=== PATIENT | male | born 1995 | race Asian ===

== ENCOUNTER 2021-12-10 13:00 | Outpatient (CLI) | payer OTHER ==
[2021-12-10 16:33] VITALS: BP 126/82
--- NOTE | 2021-12-10 16:33 | SLEEP CARE CONSULTATION ---
Information from patient questionnaire entered by Max Choe. I have reviewed and concur with the information entered by Max Choe. This document represents the service I personally performed and the decisions made by me, Idania Cardoza MD, [facility]. History of Present Illness Service Date and Time: 12/10/2021 1300 Reason for Visit: New patient (INITIAL ONSET: 10/31/18, NO PRIORS) Chief Complaint: reports: Unrefreshed sleep, Snoring, Observed pauses in breathing, Fatigue, Frequent awakenings at night Date of Onset: 2 YEARS AGO Usual bedtime: 11PM Time it takes to fall asleep: 30 MINUTES TO 1 HOUR Snores at night: Yes Observed to quit breathing while asleep: Yes Sleeps alone due to snoring: Yes Number of times waking at night: 1-2 Reasons for waking at night: reports: Choking, Snoring, Gasping for air Toss, Turn, or Twitch while sleeping: Yes Recalls having dreams: Yes Usually gets out of bed at: 7AM Feels refreshed in the morning: No Morning headache: No Sleepy or fatigued during the day: Yes Ever fallen asleep while driving: No Takes day naps: No Dreams during day naps: No Prior sleep studies: No Additional HPI information: I had the pleasure of seeing Mr. Cortes today regarding the possibility of him having a sleep disorder. As you know, he is a 26-year-old gentleman who complains of fatigue, frequent awakenings, unrefreshed sleep, loud snore, and observed apneas for the past 2 years. The patient tells me that he normally goes to bed around 11 pm, and it takes him approximately 30 - 60 minutes to fall asleep. He has been told that he snores loudly and irregularly at night. He has also been observed to stop breathing in his sleep. He can recall waking up on the average of 1 - 2 times during the night. Most of the time he wakes up because of his own snoring, choking, and having to gasp for air. There is a lot of tossing and turning in his sleep. No somniloquy (sleep talking) or somnambulism (sleep walking). Generally, he can recall having dreams. In the morning he usually gets up out of the bed around 7 a.m. not feeling refreshed nor rested. He usually does not have a morning headache. During the day he complains of feeling sleepy and fatigued. His score on [place] Sleepiness Scale is 12 out of 24. He never has fallen asleep while driving nor has had any accident due to sleepiness. He usually does not take naps during the day. Upon falling asleep during the day he denies having vivid dreams. He has had sleep paralysis, bet never experienced cataplexy or symptoms of restless leg syndrome. He reports having impaired concentration during the day. - Parasomnia Symptoms Ever been unable to move upon waking from sleep: Yes Walks in sleep: No Talks in sleep: No Ever acted out dreams in sleep: Yes Ever felt weak in the knees when startled or emotional: No Bothered by creepy, crawly, restless sensations in legs: No Problems with memory or concentration: Yes Subjective Initial [place] Sleepiness Scale score: 12 Social History The patient's occupation is a [employer]. Patient is Single and lives in . Alcohol use: Yes Alcohol amount and frequency: 2-4 ONCE A WEEK Caffeine use: Yes Caffeine amount and frequency: ONE A DAY Family History Family Hx Sleep Apnea: Father: Snoring, Sleep apnea - Treated Allergies and Home Medications Known drug allergies: No Drug allergies reviewed: Yes Home medication list reviewed: Yes (none) Review of Systems Weight gain over past 5 years: 25 Weight loss over past 5 years: 10 Respiratory: denies: shortness of breath, wheeze, sputum production, chronic cough, other Gastrointestinal: denies: heartburn, difficulty swallowing, nausea, vomitting, diarrhea, abdominal pain, other Urinary: denies: incontinence, frequency, urgency, impotence, other Neurological: denies: headaches, seizure, head trauma, disorientation, speech dysfunction, gait or balance problems, fainting or unconsciousness, other Psychiatric: denies: Attention Deficit Hyperactivity, anxiety, depression, mood disorder, claustrophobia, other Ear/Nose/Throat: denies: nasal congestion, sinus problems, nose bleeds, dry mouth/throat, hoarseness, injury to nose, tonsillectomy, wisdom teeth removed, other Endocrine: reports: too hot or cold Musculoskeletal: reports: muscle pain or cramping Immunologic: denies: sneezing, rash, itching, allergies to food or environment, other Physical Exam Vital signs obtained and entered by: RAJINDER, PROTECTIVE SIGNAL REPAIRER HELPER Blood Pressure: 126/82 Cuff size: regular (LEFT ARM) Heart Rate: 110 O2 Saturation: 97 Height: 5 ft 7 in Weight: 208 lb Body Mass Index: 32.5 BMI Classification: Obese Mood/affect: Normal HEENT: No craniofacial malformation Nostrils: patent to airflow Turbinates: normal Septum: midline Mouth and throat: normal Soft palate: normal Hard palate: normal Uvula: normal Uvula visualization: 25% Mallampati Class III Tongue: normal in size Tonsils: small Chin and jaw: Micrognathia Neck: normal w/o lymphadenopathy or thyromegaly Heart: regular rate and rhythm Lungs: clear bilaterally Extremities: no edema or clubbing Neurologic: intact, no focal deficits Impression and Plan IMPRESSION: 1. Obstructive Sleep Apnea-Hypopnea Syndrome, as suggested by history of loud and irregular snoring, observed cessation of breath while asleep, frequent awakenings during the night, nocturnal choking, unrefreshed sleep, cognitive impairment, and daytime hypersomnolence. Narrow oropharynx and obesity are common predisposing factors for obstructive sleep apnea-hypopnea syndrome. I recommend proceeding to polysomnography to confirm the diagnosis and to assess severity. I informed the patient of what the sleep studies involve and after some discussion, he agreed to proceed. Plan: 1. Schedule an in-laboratory polysomnography. 2. Avoid long distance driving or when feeling sleepy. 3. Avoid alcohol, sedative and muscle relaxant around bedtime. 4. Attempt to lose weight. 5. Return for follow up after the sleep study. Follow up with Sleep Care in: 1-2 months Visit Type: In Office Time Spent with Patient (minutes): 20 Provider Statement: I spent 100% of the Face to Face Visit with the patient with greater than 50% spent counseling the patient and coordination of care.
== END 2021-12-10 13:01 | disposition home or self-care (01) ==
LOC: SC 13:00
PROVIDERS: ATTEND Internal Medicine Pulmonary Disease
DX: R06.83 Snoring (principal); G47.8 Other sleep disorders; R06.81 Apnea, not elsewhere classified; G47.10 Hypersomnia, unspecified; R53.83 Other fatigue; E66.9 Obesity, unspecified; Z68.32 Body mass index [BMI] 32.0-32.9, adult
CPT/HCPCS: 99202; 99212

== ENCOUNTER 2021-12-23 19:12 | Outpatient (CLI) | payer OTHER | END 2021-12-23 19:13 | disposition home or self-care (01) | LOC: SC 19:12 | PROVIDERS: ATTEND Nurse Practitioner Family | DX: G47.33 Obstructive sleep apnea (adult) (pediatric) (principal) | CPT/HCPCS: 95810 ==

== ENCOUNTER 2022-04-05 13:52 | Outpatient (CLI) | payer OTHER ==
--- NOTE | 2022-04-05 13:39 | SLEEP CARE CONSULTATION ---
Information from patient questionnaire entered by Casi Thurman. I have reviewed and concur with the information entered by Casi Thurman. This document represents the service I personally performed and the decisions made by , Annabel Gaspar ARNP. History of Present Illness Service Date and Time: 04/05/2022 1320 Previous diagnosis: Mild, Obstructive Sleep Apnea-Hypopnea Syndrome AHI: 5.8 (in 2021) Reason for follow up: first compliance (Setup 02/26/2022) Equipment type: CPAP (RESMED Airsense 11) Equipment obtained from: [employer] (got initial supplies) Mask style: Nasal pillows Mask brand: Resmed (P30i) Backup mask available: Yes (other mask) Last cushion change: 1 month Prior sleep studies: No Type of Sleep Study: Polysomnography (F/U POLY, 12/23/2021 [facility], pos,) HPI additional information: MICHELLE MARIE was diagnosed to have mild, AHI 5.8, obstructive sleep apnea- hypopnea syndrome and returns via video telehealth visit today for CPAP therapy first compliance follow-up. Sleep Study - Results Type of Sleep Study: Polysomnography (F/U POLY, 12/23/2021 [facility], pos,) Prior sleep studies: No CPAP Compliance Data - Data Reviewed with Patient Average duration of nightly device use: 4 hours 47 minutes Compliance rate %: 57 ( days used) Current pressure setting (cmH2O): 4-15 (median 5.8, avg 8.2, max 9.6) Average residual AHI: 0.5 Central apnea: 0.0 Obstructive apnea: 0.2 Subjective Patient concerns: denies: aerophagia, mask discomfort, air blowing in eyes, mask leak noise, condensation in mask/hose, nasal congestion, dry mouth, nose, throat, epistaxis Observed to snore while using device: No Current pressure setting perceived as: comfortable On therapy, patient: reports: sleeping better, awakening more refreshed, being more awake and alert during the day, more rested overall. denies: drowsiness while driving Initial [place] Sleepiness Scale score: 12 Current [place] Sleepiness Scale score: 10 (04/05/2022) Allergies and Home Medications Drug allergies reviewed: Yes (NKDA) Home medication list reviewed: Yes (no changes) Review of Systems Review of systems same as previous: Yes (no changes) Physical Exam Vital signs obtained and entered by: VIA PHONE Height: 5 ft 7 in Weight: 200 lb (pt reported) Body Mass Index: 31.3 BMI Classification: Obese Impression and Plan 1. Obstructive Sleep Apnea-Hypopnea Syndrome, mild, with good treatment compliance and good apnea control. On CPAP therapy, the patient has better sleep quality and is more rested overall. Patient changed to a new nasal pillows mask that he likes better than the fullface and it is more comfortable. He does take the mask off while he is asleep at times but is trying to keep it on. He does notice a difference when he is able to sleep with it. The patients pressure will be changed to autoCPAP 6-10 cmH20 to reflect pressure being used. Patient advised to contact me if pressure change is uncomfortable so that it can be adjusted. Goals for apnea control discussed.Patient's apnea severity and rationale for treatment to reduce apnea, improve sleep quality and reduce card iovascular and cerebrovascular events was reviewed. Patient is going on deployment for around 6 months. I talked about him increasing his compliance by making sure the mask stays on for at least 4 hours a night. He will try to do this and he will contact his [employer] company for supplies to be able to use his CPAP while he is gone. 2. Obesity, unspecified. Currently patients BMI is 31.1. Obesity increases the risk of apnea, CPAP pressure requirements and overall health risks especially cardiovascular and diabetes. Thus patient is advised to lose weight. Weight loss can be done with reducing portion size, reducing refined foods and balancing content with vegetables, fruit and whole grain foods. In addition, patient encouraged to get regular exercise. * Change auto CPAP pressure to 6-10 cmH2O * Notify me if snoring with mask or feeling that the pressure is too much or too little * Attempt to lose weight * Call this office if any problems using CPAP * Return for follow up in 6 months, or sooner if concerns arise Counseling Topics: Spare mask, Weight loss health impact Visit Type: Telehealth Video Video Type: Doximity Patient Location: Home Location of Provider: Office Patient agrees and consents to this telehealth visit type: Yes Patient agrees to have their insurance billed: Yes Time Spent with Patient (minutes): 20 Provider Statement: I spent 100% of the Telehealth Video Call with the patient with greater than 50% spent counseling the patient and coordination of care.
== END 2022-04-05 13:53 | disposition home or self-care (01) ==
LOC: SC 13:52
PROVIDERS: ATTEND Nurse Practitioner Family
DX: G47.33 Obstructive sleep apnea (adult) (pediatric) (principal); E66.9 Obesity, unspecified; Z68.31 Body mass index [BMI] 31.0-31.9, adult

== ENCOUNTER 2022-12-24 09:29 | Outpatient (CLI) | payer OTHER ==
--- NOTE | 2022-12-24 09:54 | Sleep Patient Instructions ---
Sleep Center Visit Summary - Patient Visit Information Reason for Visit: Eight month followup for PAP therapy - Patient Instructions Additional Instructions: You were here for follow up of CPAP therapy. You will be continued on CPAP therapy with pressure at 6-10 cmH2O. You should follow up with sleep care in 1-2 months. You may contact us sooner for any questions or concerns. - Clinic Information Contact: [facility] [address] [place] [id number] [email or web address] T: [phone]
--- NOTE | 2022-12-24 09:58 | SLEEP CARE CONSULTATION ---
Information from patient questionnaire entered by Casi Thurman. I have reviewed and concur with the information entered by Casi Thurman. This document represents the service I personally performed and the decisions made by , Annabel Gaspar ARNP. History of Present Illness Service Date and Time: 12/24/2022928 Previous diagnosis: Mild, Obstructive Sleep Apnea-Hypopnea Syndrome AHI: 5.8 (in 2021) Reason for follow up: other (8 MONTH F/U) Equipment type: CPAP (RESMED Airsense 11; 01/2022) Equipment obtained from: [employer] (getting supplies) Mask style: Nasal pillows Mask brand: Resmed (Airfit P30i) Backup mask available: No (will keep old mask when replaced) Last cushion change: long time Prior sleep studies: No Type of Sleep Study: Polysomnography (F/U POLY, 12/23/2021 [facility], pos,) HPI additional information: MICHELLE MARIE was diagnosed to have mild, AHI 5.8, obstructive sleep apnea- hypopnea syndrome and returned today for CPAP therapy eight month follow-up. 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 denies: aerophagia, mask discomfort, air blowing in eyes, mask leak noise, condensation in mask/hose, nasal congestion, epistaxis Observed to snore while using device: No Current pressure setting perceived as: comfortable On therapy, patient: reports: sleeping better, awakening more refreshed, being more awake and alert during the day, more rested overall. denies: drowsiness while driving Initial [place] Sleepiness Scale score: 12 Current [place] Sleepiness Scale score: 8 (12/24/22) Allergies and Home Medications Known drug allergies: No Drug allergies reviewed: Yes Home medication list reviewed: Yes (no changes) Review of Systems Review of systems same as previous: Yes (no changes) Physical Exam Vital signs obtained and entered by: CASI Suero MA Blood Pressure: 110/72 (LEFT ARM) Cuff size: regular Heart Rate: 78 O2 Saturation: 98 Height: 5 ft 7 in Weight: 187 lb 12.8 oz Weight change since last visit: 13 lb loss Body Mass Index: 29.4 BMI Classification: Overweight Impression and Plan 1. Obstructive Sleep Apnea-Hypopnea Syndrome, mild, with fair treatment compliance and good apnea control. On CPAP therapy, the patient has better sleep quality and is more rested overall. He states he was unable to take and use his device when he went on to appointment because there is nowhere for him to be able to plug his device in. He has been using it for about a month and is compliance is at 67%. He needs to order supplies and I encouraged him to reach out to his DME for these. I will have him come back in 1 to 2 months to recheck his compliance. Patient's apnea severity and rationale for treatment to reduce apnea, improve sleep quality and reduce cardiovascular and cerebrovascular events was reviewed. 2. Overweight, unspecified. Currently patients BMI is 29.4. Obesity increases the risk of apnea, CPAP pressure requirements and overall health risks especially cardiovascular and diabetes. Thus patient is advised to continue to try to lose weight. * Continue auto CPAP pressure at 6-10 cmH2O * Notify me if snoring with mask or feeling that the pressure is too much or too little * Attempt to lose weight * Call this office if any problems using CPAP * Return for follow up in 1-2 months, or sooner if concerns arise Counseling Topics: Spare mask, Weight loss health impact Visit Type: In Office Time Spent with Patient (minutes): 16 Provider Statement: I spent 100% of the Face to Face Visit with the patient with greater than 50% spent counseling the patient and coordination of care.
[2022-12-24 10:01] VITALS: BP 110/72
== END 2022-12-24 09:30 | disposition home or self-care (01) ==
LOC: SC 09:29
PROVIDERS: ATTEND Nurse Practitioner Family
DX: G47.33 Obstructive sleep apnea (adult) (pediatric) (principal); E66.3 Overweight; Z68.29 Body mass index [BMI] 29.0-29.9, adult
CPT/HCPCS: 99212

== ENCOUNTER 2023-02-06 09:34 | Outpatient (CLI) | payer OTHER ==
--- NOTE | 2023-02-06 09:48 | Sleep Patient Instructions ---
Sleep Center Visit Summary - Patient Visit Information Reason for Visit: 6 WEEK FOLLOW UP - Patient Instructions Additional Instructions: You were here for follow up of CPAP therapy. You will be continued on CPAP therapy with pressure at 6-10 cmH2O. You should follow up with sleep care in 12 months. You may contact us sooner for any questions or concerns. - Clinic Information Contact: [facility] [address] [place] [address] [email or web address] T: [phone]
--- NOTE | 2023-02-06 09:51 | SLEEP CARE CONSULTATION ---
Information from patient questionnaire entered by Casi Thurman. I have reviewed and concur with the information entered by Casi Thurman. This document represents the service I personally performed and the decisions made by , Annabel Gaspar ARNP. History of Present Illness Service Date and Time: 02/06/2023 0934 Previous diagnosis: Mild, Obstructive Sleep Apnea-Hypopnea Syndrome AHI: 5.8 (in 2021) Reason for follow up: other (6 WEEK F/U) Equipment type: CPAP (RESMED Airsense 11, s/u 01/2022) Equipment obtained from: [employer] ([address] supplies) Mask style: Nasal pillows Mask brand: Resmed (AirFit P30i) Backup mask available: Yes (other mask) Last cushion change: 3 days Prior sleep studies: No Type of Sleep Study: Polysomnography (F/U POLY, 12/23/2021 [facility], pos,) HPI additional information: MICHELLE MARIE was diagnosed to have mild, AHI 5.8, obstructive sleep apnea- hypopnea syndrome and returned today for CPAP therapy six week follow-up. Sleep Study - Results Type of Sleep Study: Polysomnography (F/U POLY, 12/23/2021 [facility], pos,) Prior sleep studies: No CPAP Compliance Data - Data Reviewed with Patient Average duration of nightly device use: 4 HRS 49 MIN Compliance rate %: 73 (12/22/22-02/03/23; 36/44 days used) Current pressure setting (cmH2O): 6-10 Average residual AHI: 0.5 Central apnea: 0 Obstructive apnea: 0.3 Average large leak: 0.3 L/min Subjective Missed days of use due to: reports: travel Patient concerns: denies: aerophagia, mask discomfort, air blowing in eyes, mask leak noise, condensation in mask/hose, nasal congestion, dry mouth, nose, throat, epistaxis Observed to snore while using device: No Current pressure setting perceived as: comfortable On therapy, patient: reports: sleeping better, awakening more refreshed, being more awake and alert during the day, more rested overall. denies: drowsiness while driving Initial [place] Sleepiness Scale score: 12 Current [place] Sleepiness Scale score: 8 (02/06/23) Allergies and Home Medications Known drug allergies: No Drug allergies reviewed: Yes Home medication list reviewed: Yes (no changes) Review of Systems Review of systems same as previous: Yes (no changes) Physical Exam Vital signs obtained and entered by: CASI Suero MA Blood Pressure: 128/78 (LEFT ARM) Cuff size: regular Heart Rate: 102 O2 Saturation: 98 Height: 5 ft 7 in Weight: 199 lb 12.8 oz Body Mass Index: 31.3 BMI Classification: Obese Impression and Plan 1. Obstructive Sleep Apnea-Hypopnea Syndrome, mild, with good treatment compliance and good apnea control. On CPAP therapy, the patient has better sleep quality and is more rested overall. He has been able to bring up his compliance with use at home. He is more comfortable with the mask he is using, ResMed AirFit P30i. Patient has significant improvement of their sleep apnea and is satisfied with current CPAP therapy. Patient denies problems with oral dryness, nasal congestion, epistaxis, skin irritation or aerophagia. Patient's apnea severity and rationale for treatment to reduce apnea, improve sleep quality and reduce cardiovascular and cerebrovascular events was reviewed. 2. Obesity, unspecified. Currently patients BMI is 31.3. Obesity increases the risk of apnea, CPAP pressure requirements and overall health risks especially cardiovascular and diabetes. Thus patient is advised to lose weight. * Continue auto CPAP pressure at 6-10 cmH2O * Notify me if snoring with mask or feeling that the pressure is too much or too little * Attempt to lose weight * Call this office if any problems using CPAP * Return for follow up in 1 year, or sooner if concerns arise Counseling Topics: Spare mask, Weight loss health impact Visit Type: In Office Time Spent with Patient (minutes): 12 Provider Statement: I spent 100% of the Face to Face Visit with the patient with greater than 50% spent counseling the patient and coordination of care.
[2023-02-06 09:57] VITALS: BP 128/78; O2SAT 98
== END 2023-02-06 09:35 | disposition home or self-care (01) ==
LOC: SC 09:34
PROVIDERS: ATTEND Nurse Practitioner Family
DX: G47.33 Obstructive sleep apnea (adult) (pediatric) (principal); E66.9 Obesity, unspecified; Z68.31 Body mass index [BMI] 31.0-31.9, adult
CPT/HCPCS: 99212

== ENCOUNTER 2023-04-24 15:52 | Day surgery (SDC) | payer OTHER ==
[2023-04-24] MEDS ORDERED: MAG HYDROX/AL HYDROX/SIMETH 30 ML UDC PO STA (16:20)
--- NOTE | 2023-04-24 16:21 | ED Physician Documentation ---
PD HPI ABD PAIN - Stated complaint Stated Complaint: ABD/BACK PX - Chief complaint Chief Complaint: Abd Pain - History obtained from History obtained from: Patient - Additional information Additional information: Previously healthy 27-year-old gentleman with no health problems and no history of surgeries has had intermittent epigastric pain that was worse since yesterday. It radiates to the back and is worse after eating. He has not been nauseous. He has been constipated. No history of endoscopies upper or lower. It does get better with Tums. PD PAST MEDICAL HISTORY - Past Medical History Past Medical History: No Cardiovascular: None Respiratory: None Neuro: None Endocrine/Autoimmune: None GI: None : None HEENT: None Psych: None Musculoskeletal: None Derm: None - Past Surgical History Past Surgical History: No - Present Medications Home Medications: Ambulatory Orders Medication Instructions Recorded Confirmed No Known Home Medications 02/06/23 04/24/23 - Allergies Allergies/Adverse Reactions: Allergies Allergy/AdvReac Type Severity Reaction Status Date / Time No Known Drug Allergies Allergy Verified 04/24/23 16:01 - Social History Does the pt smoke?: No Smoking Status: Never smoker Does the pt drink ETOH?: No Does the pt have substance abuse?: No - Immunizations Immunizations are current?: Yes - POLST Patient has POLST: No PD ED PE NORMAL - Vitals Vital signs reviewed: Yes - General General: Alert and oriented X 3, No acute distress - Cardiac Cardiac: RRR, No murmur - Respiratory Respiratory: No respiratory distress, Clear bilaterally - Abdomen Abdomen: Normal bowel sounds, Soft, Non tender - Neuro Neuro: Alert and oriented X 3, Normal speech Results - Vitals Vitals: Vital Signs - 24 hr 04/24/23 04/24/23 16:01 19:06 Temperature 36.5 C Heart Rate 90 92 Respiratory 16 15 Rate Blood Pressure 140/77 H 124/82 H O2 Saturation 98 100 Oxygen O2 Source Room air - Labs Labs: Laboratory Tests 04/24/23 04/24/23 16:33 16:33 WBC 6.7 RBC 5.15 Hgb 15.4 Hct 47.0 MCV 91.3 MCH 29.9 MCHC 32.8 RDW 12.1 Plt Count 216 MPV 9.2 Neut # (Auto) 4.9 Lymph # (Auto) 1.2 L Glenn # (Auto) 0.6 Eos # (Auto) 0.0 Baso # (Auto) 0.0 Absolute Nucleated RBC 0.00 Nucleated RBC % 0.0 Sodium 136 Potassium 3.7 Chloride 102 Carbon Dioxide 28 Anion Gap 6.0 BUN 12 Creatinine 1.0 Estimated GFR (MDRD) 90 Glucose 95 Calcium 9.9 Total Bilirubin 1.4 H AST 256 H ALT 206 H Alkaline Phosphatase 76 Total Protein 6.9 Albumin 4.8 Globulin 2.1 Albumin/Globulin Ratio 2.3 H Lipase 16 - Rads (name of study) Right upper quadrant ultrasound Relevant Findings:: Final report received, EMP independent interpretation of test PD Medical Decision Making - ED course ED course: He has been having accelerating epigastric pain rating to the back worse since yesterday and worse after eating. He is not very tender but ultrasound showing cholecystitis and he has modest elevation in his liver enzymes. Case discussed by phone with our on-call surgeon Dr. Pacheco who will put him in the hospital a nd plans to do a lap michele tomorrow. Departure - Departure Disposition: ED Transfer to [facility] Clinical Impression: Cholecystitis Condition: Stable Forms: PCP List
[2023-04-24] MEDS ORDERED: LIDOCAINE VISCOUS 2% 15 ML UDC MM STA (16:25)
[2023-04-24 16:38] LABS: BASOPHILS % (AUTO) 0.3 %; EOSINOPHILS % (AUTO) 0.6 %; HGB - HEMOGLOBIN 15.4 g/dL (14.0-18.0); LYMPHOCYTES # (AUTO) 1.2 10^3/uL (1.5-3.5); LYMPHOCYTES % (AUTO) 17.7 %; MEAN CORPUSCULAR HEMOGLOBIN 29.9 pg (27.0-31.0); MEAN CORPUSCULAR HGB CONC 32.8 g/dL (32.0-36.0); MEAN CORPUSCULAR VOLUME 91.3 fL (80.0-94.0); MEAN PLATELET VOLUME 9.2 fL (7.4-11.4); MONOCYTES # (AUTO) 0.6 10^3/uL (0.0-1.0); MONOCYTES % (AUTO) 9.3 %; NEUTROPHILS # (AUTO) 4.9 10^3/uL (1.5-6.6); PLT - PLATELET COUNT 216 10^3/uL (130-450); RED BLOOD COUNT 5.15 10^6/uL (4.70-6.10); RED CELL DISTRIBUTION WIDTH 12.1 % (12.0-15.0); WHITE BLOOD COUNT 6.7 x10^3/uL (4.8-10.8)
[2023-04-24 16:53] LABS: ALBUMIN 4.8 g/dL (3.2-5.5)
[2023-04-24 17:10] LABS: ALBUMIN/GLOBULIN RATIO 2.3 (1.0-2.2); BILIRUBIN,TOTAL 1.4 mg/dL (0.2-1.0); CALCIUM 9.9 mg/dL (8.5-10.3); POTASSIUM 3.7 mmol/L (3.5-4.5); TOTAL PROTEIN 6.9 g/dL (6.4-8.9)
--- NOTE | 2023-04-24 18:20 | Ultrasound Report ---
PROCEDURE: Abdomen Limited INDICATIONS: upper abd pain, abn liver enz TECHNIQUE: Real-time focused scanning was performed of the abdomen, with image documentation. COMPARISONS: None. FINDINGS: Liver: The liver demonstrates mildly enlarged size. The liver demonstrates mildly increased echogeni city, which limits ultrasound sensitivity for detection of masses. The main portal vein demonstrates normal size and hepatopedal flow. Gallbladder: Gallstones are seen. The gallbladder wall is thickened up to 6.3 mm. The gallbladder wal l appears edematous. No pericholecystic fluid is seen. The sonographic Carlos's sign is negative. Biliary ducts: Intrahepatic bile ducts are non-dilated. Extrahepatic bile duct caliber measures 3 m m. Normal is 6-7 mm or less in diameter, or 10 mm or less post-cholecystectomy. Pancreas: The pancreas is not well seen. Right kidney: Normal in size and echotexture. Right kidney measures 10.5 cm long. No hydronephrosis or nephrolithiasis. No solid masses. No complex renal cystic lesions which require follow-up. Lobula tion can be seen of the right kidney, which is attributed to lobulation. IMPRESSION: Gallstones and gallbladder wall thickening can be seen, yet without additional sonographic signs of c holecystitis. No biliary dilatation is seen. Mildly enlarged, mildly fatty liver noted. Note: Concordant preliminary findings given by the artificial breeding distributor upon the completion of the examination to Dr. Kovacs. Reviewed by: Tony Bateman MD on 04/24/2023 5:19 PM [place] Approved by: Tony Bateman MD on 04/24/2023 5:19 PM [facility] Station ID: [id number]
[2023-04-24] MEDS ORDERED: HYDROmorphone 0.5 MG/0.5 ML SYRINGE IVP PRN (19:08)
[2023-04-24] MEDS ORDERED: ONDANSETRON ODT 4 MG TABLET TL PRN ×2 (19:08→23:47)
[2023-04-24] MEDS ORDERED: IBUPROFEN 400 MG TABLET PO PRN ×2 (19:08→23:46)
[2023-04-24] MEDS ORDERED: SODIUM CHLORIDE FLUSH 0.9% 10 ML SYRINGE IVP PRN (19:08)
[2023-04-24] MEDS ORDERED: ACETAMINOPHEN 325 MG TABLET PO PRN ×2 (19:08→23:45)
[2023-04-24] MEDS ORDERED: ONDANSETRON 4 MG/2 ML VIAL IVP PRN ×2 (19:08→23:46)
[2023-04-24] MEDS ORDERED: oxyCODONE 5 MG TABLET PO PRN ×2 (19:08→23:47)
[2023-04-24] MEDS: LACTATED RINGERS 1,000 ML IV SCH (20:01)
[2023-04-24] MEDS: SODIUM CHLORIDE FLUSH 0.9% 10 ML SYRINGE IVP SCH (23:52)
[2023-04-24] MEDS: ceFAZolin 2 GM VIAL IVP SCH (23:52)
[2023-04-25] MEDS ORDERED: ceFAZolin 2 GM VIAL IVP SCH
[2023-04-25] MEDS: LACTATED RINGERS 1,000 ML IV SCH (06:12)
[2023-04-25] MEDS: ceFAZolin 2 GM VIAL IVP SCH (06:32)
[2023-04-25 06:37] LABS: ALBUMIN 4.2 g/dL (3.2-5.5); ALBUMIN/GLOBULIN RATIO 2.3 (1.0-2.2); BILIRUBIN,TOTAL 0.7 mg/dL (0.2-1.0); CALCIUM 9.6 mg/dL (8.5-10.3); CREATININE 1.1 mg/dL (0.6-1.3)
[2023-04-25] MEDS: SODIUM CHLORIDE FLUSH 0.9% 10 ML SYRINGE IVP SCH (07:33)
--- NOTE | 2023-04-25 08:22 | ANESTHESIA ---
Pre-Anesthesia VS, & Labs - Diagnosis Acute cholecystitis - Procedure lap michele with IOC Vital Signs: Temp Pulse Resp BP Pulse Ox O2 Flow Rate 36.8 C 76 20 122/78 97 04/25/23 07:57 04/25/23 07:57 04/25/23 07:57 04/25/23 07:57 04/25/23 07:57 Height: 5 ft 7 in Weight (kg): 86.5 kg Body Mass Index: 29.8 BMI Classification: Overweight - NPO >8 hours - Lab Results Current Lab Results: Laboratory Tests 04/25/23 05:58: Sodium 139, Potassium 4.0, Chloride 105, Carbon Dioxide 28, Anion Gap 6.0, BUN 10, Creatinine 1.1, Estimated GFR (MDRD) 80 L, Glucose 89, Calcium 9.6, Total Bilirubin 0.7, AST 253 H, ALT 381 H, Alkaline Phosphatase 77, Total Protein 6.0 L, Albumin 4.2, Globulin 1.8 L, Albumin/Globulin Ratio 2.3 H 04/24/23 16:33: Sodium 136, Potassium 3.7, Chloride 102, Carbon Dioxide 28, Anion Gap 6.0, BUN 12, Creatinine 1.0, Estimated GFR (MDRD) 90, Glucose 95, Calcium 9.9, Total Bilirubin 1.4 H, AST 256 H, ALT 206 H, Alkaline Phosphatase 76, Total Protein 6.9, Albumin 4.8, Globulin 2.1, Albumin/Globulin Ratio 2.3 H, Lipase 16 04/24/23 16:33: WBC 6.7, RBC 5.15, Hgb 15.4, Hct 47.0, MCV 91.3, MCH 29.9, MCHC 32.8, RDW 12.1, Plt Count 216, MPV 9.2, Neut # (Auto) 4.9, Lymph # (Auto) 1.2 L, [place] # (Auto) 0.6, Eos # (Auto) 0.0, Baso # (Auto) 0.0, Absolute Nucleated RBC 0.00, Nucleated RBC % 0.0 Lab results reviewed: Yes Fish Bones: 04/24/23 16:33 04/25/23 05:58 Home Medications and Allergies Active Medications Acetaminophen (Acetaminophen 325 Mg Tablet) 650 mg PO Q4H PRN PRN Reason: Pain 1 to 4, or Fever Cefazolin Sodium (Cefazolin 2 Gm Vial) 2 gm IVP Q8HR [facility] Last Admin: 04/25/23 06:32 Dose: 2 gm Hydromorphone HCl (Hydromorphone 0.5 Mg/0.5 Ml Syringe) 0.5 mg IVP Q2H PRN PRN Reason: Pain 8 to 10 Lactated Ringer's (Lr) 1,000 mls @ 100 mls/hr IV .Q10H [facility] Last Admin: 04/25/23 06:12 Dose: 100 mls/hr Ibuprofen (Ibuprofen 400 Mg Tablet) 400 mg PO Q4H PRN PRN Reason: Pain 1 to 4 Ondansetron HCl (Ondansetron 4 Mg/2 Ml Vial) 4 mg IVP Q6H PRN PRN Reason: Nausea / Vomiting Ondansetron HCl (Ondansetron Odt 4 Mg Tablet) 4 mg TL Q6H PRN PRN Reason: Nausea / Vomiting Oxycodone HCl (Oxycodone 5 Mg Tablet) 5 mg PO Q4H PRN PRN Reason: Pain 5 to 7 Sodium Chloride (Sodium Chloride Flush 0.9% 10 Ml Syringe) 10 ml IVP PRN PRN PRN Reason: NEEDED PER PROVIDER ORDERS Sodium Chloride (Sodium Chloride Flush 0.9% 10 Ml Syringe) 10 ml IVP 0100,0900,1700 [facility] Last Admin: 04/25/23 07:33 Dose: Not Given No Known Home Medications 02/06/23 Allergies/Adverse Reactions: Allergies Allergy/AdvReac Type Severity Reaction Status Date / Time No Known Drug Allergies Allergy Verified 04/24/23 16:01 Anes History & Medical History - Anesthetic History Family history of Anesthesia Complications: Denies Family history of Malignant Hyperthermia: Denies - Medical History Cardiovascular: reports: None Pulmonary: reports: Sleep apnea, CPAP use (hasn't used for 3 months) Gastrointestinal: reports: None Urinary: reports: None Neuro: reports: None Musculoskeletal: reports: None Endocrine/Autoimmune: reports: None Blood Disorders: reports: None Skin: reports: None Smoking Status: Current every day smoker (daily vapes) Psychosocial: reports: Alcohol (1-2x per month) History of Cancer?: No Exam General: Alert, Oriented x3, Cooperative, No acute distress Dental: WNL Mouth Openin Fingerbreadth Neck Mobility: Normal Mallampati classification: II Thyromental Distance: 4-6 cm Mental/Cognitive Status: Alert/Oriented X3, Normal for patient Plan Anesthesia Type: General Consent for Procedure(s) Verified and Reviewed: Yes Code Status: Attempt Resuscitation ASA classification: 2-Mild systemic disease Is this case an emergency?: No
--- NOTE | 2023-04-25 10:24 | PHARMACY PROGRESS NOTE ---
- Best Possible Medication History Admit Date and Time: Processed by: Nursing As the person ultimately responsible for medication therapy, providers are able to order a medication from an existing home medication list in [facility] via the "Reconcile Routine" prior to Confirmation of that medication by manager client support. Such practice is discouraged except when the physician, in their clinical judgment, deems that a medical need exists for a medication without regard to previous use.
[2023-04-25] MEDS ORDERED: DEXAMETHASONE 4 MG/ML VIAL ONE ×2 (11:14→12:29)
[2023-04-25] MEDS ORDERED: ONDANSETRON 4 MG/2 ML VIAL ONE ×2 (11:14→12:29)
[2023-04-25] MEDS ORDERED: ROCURONIUM 50 MG/5 ML VIAL ONE (11:14)
[2023-04-25] MEDS ORDERED: PROPOFOL 500 MG/50 ML 500 MG/50 ML VIAL ONE (11:14)
[2023-04-25] MEDS ORDERED: SUCCINYLCHOLINE 200 MG/10 ML VIAL ONE (11:14)
[2023-04-25] MEDS ORDERED: fentaNYL 100 MCG/2 ML VIAL ONE (11:40)
--- NOTE | 2023-04-25 11:56 | HISTORY & PHYSICAL EXAMINATION ---
Chief Complaint - Chief Complaint Chief Complaint: upper abdominal pain History of Present Illness - Admitted From Admitted From:: ED - History Obtained From Records Reviewed: yes History obtained from: pt Exam Limitations: none - History of Present Illness HPI Comment/Other: history mild upper abdominal pain which became much worse yesterday. seen in the ED. US numerous gallstones and labs elevated lfts. pain continue to be significant and admitted last pm. pain improved this am. History - Past Medical History Cardiovascular: reports: None Respiratory: reports: Sleep apnea, CPAP use (hasn't used for 3 months) Neuro: reports: None Endocrine/Autoimmune: reports: None GI: reports: None : reports: None HEENT: reports: None Psych: reports: None Musculoskeletal: reports: None Derm: reports: None MRSA Hx?: No - POLST Patient has POLST: No Meds/Allgy - Home Medications Home Medications: Ambulatory Orders Medication Instructions Recorded Confirmed No Known Home Medications 02/06/23 04/24/23 - Allergies Allergies/Adverse Reactions: Allergies Allergy/AdvReac Type Severity Reaction Status Date / Time No Known Drug Allergies Allergy Verified 04/24/23 16:01 Review of Systems - Other Findings Other Findings: 10 pt ros as above otherwise unremarkable Exam - Vital Signs Vital Signs: Vital Signs x48h Temp Pulse Resp BP Pulse Ox 04/25/23 07:57 36.8 C 76 20 122/78 97 - Physical Exam General Appearance: positive: No acute distress, Alert Eyes Bilateral: positive: PERRL, EOMI ENT: positive: No signs of dehydration Neck: positive: No JVD, Trachea midline Respiratory: positive: No respiratory distress, Breath sounds nml Cardiovascular: positive: Regular rate & rhythm Abdomen: positive: Non-tender, No distention Neurologic/Psychiatric: positive: Oriented x3 Conclusion/Plan - Problem List (1) Cholecystitis Conclusion/Plan: and choledocholithiasis. plan lap michele and cholangiogram. parq held and consent obtained - Lab Results Lab results reviewed: Yes Fish Bones: 04/24/23 16:33 04/25/23 05:58
[2023-04-25] MEDS ORDERED: BUPIVACAINE 0.25% PF 30 ML VIAL ONE (11:57)
[2023-04-25] MEDS ORDERED: iohexoL-240 10 ML VIAL IVP ONE ×2 (11:57→13:31)
[2023-04-25] MEDS ORDERED: ceFAZolin 1 GM VIAL ONE ×2 (12:29)
[2023-04-25] MEDS ORDERED: LIDOCAINE-PF 2% 10 ML AMP SUBQ ONE (13:40)
[2023-04-25] MEDS ORDERED: SUGAMMADEX 200 MG/2 ML VIAL IVP ONE (13:40)
[2023-04-25] MEDS ORDERED: BUPIVACAINE 0.25% PF 30 ML VIAL SUBQ ONE (13:47)
[2023-04-25] MEDS ORDERED: KETOROLAC 30 MG/ML VIAL ONE (13:56)
[2023-04-25] MEDS ORDERED: HYDROmorphone 0.5 MG/0.5 ML SYRINGE IVP PRN (14:07)
[2023-04-25] MEDS ORDERED: MORPHINE 2 MG/ML CARPUJECT IVP PRN (14:07)
[2023-04-25] MEDS ORDERED: ONDANSETRON 4 MG/2 ML VIAL IVP PRN ×2 (14:07→14:41)
[2023-04-25] MEDS ORDERED: NALOXONE 0.4 MG/ML VIAL IVP PRN (14:07)
[2023-04-25] MEDS ORDERED: ATROPINE ABBOJECT 1 MG/10 ML SYRINGE IVP PRN (14:07)
[2023-04-25] MEDS ORDERED: fentaNYL 100 MCG/2 ML VIAL IVP PRN (14:07)
--- NOTE | 2023-04-25 14:17 | XRAY Report ---
PROCEDURE: OR Cholangiogram INDICATIONS: CHOLANGIOGRAM TECHNIQUE: Intraoperative cholangiogram was performed at the time of cholecystectomy. COMPARISON: None. FINDINGS: Cholangiogram demonstrates patency of the common bile duct with no stone. IMPRESSION: Intraoperative cholangiogram demonstrating a patent common bile duct. Reviewed by: Micheal Holland on 04/25/2023 2:16 PM [facility] Approved by: Micheal Holland on 04/25/2023 2:16 PM [facility] Station ID: [id number]
[2023-04-25] MEDS ORDERED: HYDROcod/ACETAM 5/325 MG TABLET PO PRN (14:41)
--- NOTE | 2023-04-25 14:54 | OPERATIVE REPORT ---
Operative Report - General Procedure Date: 04/25/23 Planned Procedure: lap michele with cholangiogram Pre-Op Diagnosis: cholecystitis and choledocholithiasis Procedure Performed: lap michele with cholangiogram Post Op Diagnosis: chronic cholecystitis and choledocholithiasis - Procedure Note Primary Surgeon: sathish whitmore Anesthesia Technique: General ET tube, Local Pathology: gallbladder Estimated Blood Loss (mL): 5 Drain/Tube Type: Other (none) Indications: abdominal pain, gallstones, elevated lfts Findings: stone removed. normal cholangiogram following Complications: none - Other Other Information/Narrative: The patient was properly identified brought to the operating room and placed in supine position. He voided prior to surgery. General endotracheal anesthesia was induced. Sequential compression devices were placed. He was prepped and draped in a sterile fashion and given preoperative antibiotics. Local anesthetic was given to incision areas. An infraumbilical incision was made. Dissection proceeded down to the fascia. Fascia was incised lifted upwards and abdomen entered with a Veress needle. CO2 was insufflated to a pressure of 15. A 30 degree scope with Visiport trocar was placed. There was no evidence of injury from Veress needle or trocar placement. Under direct vision two 5 mm trocars were placed in the right upper quadrant and a 10 mm trocar was placed in the epigastrium. Fundus of the gallbladder was retracted anterior. Adherent omentum and loosely adherent duodenum was carefully removed from the gallbladder with combination Metzenbaum scissors Kitner and [place] dissector. The infundibulum of the gallbladder was then retracted right lateral and caudad. He had both an anterior and posterior cystic artery branch which were separately clipped at the gallbladder and x 2 slightly proximal and sharply divided. An additional small arterial was clipped x 1 and divided with cautery. The very large bare cystic plate area or window was created. The cystic duct was obviously enlarged. The cystic duct was clipped at the gallbladder and partially opened. Mild pressure was placed on the common bile duct with the [place] dissector and stone milked out of the cystic duct. Cholangiogram was then performed using a yellow ureteral catheter and Hernandez clamp. Cholangiogram is normal. The cystic duct was then tied with a 2-0 silk and further clipped x 2. Gallbladder was further mobilized off from the liver with hook cautery placed in an Endo Catch bag and brought out through the epigastric trocar site. Hemostasis was assured. Abdomen was thoroughly irrigated. No apparent complications. CO2 was evacuated and trocars removed under direct vision. Fascia at the umbilicus was closed with a running 0 Vicryl suture. Fascia of the epigastrium was closed with a [id number] 0 Vicryl suture. Skin was closed with buried interrupted 4-0 Monocryl. Dressings were applied. He tolerated the procedure well was awakened and brought to recovery in good condition.
[2023-04-25] MEDS ORDERED: LACTATED RINGERS 1,000 ML IV SCH (15:00)
[2023-04-25] MEDS ORDERED: LACTATED RINGERS 1,000 ML IV ONE (15:20)
[2023-04-25 16:31] VITALS: BP 113/72; O2SAT 97
--- NOTE | 2023-04-25 20:40 | ANESTHESIA POST OP EVALUATION ---
Anesthesia Post Eval - Post Anesthesia Eval Vitals: Last Vital Signs Temp 36.9 C 04/25/23 16:27 Pulse 71 04/25/23 16:27 Resp 20 04/25/23 16:27 BP 113/72 04/25/23 16:27 Pulse Ox 97 04/25/23 16:27 O2 Flow Rate CV Function Including HR & BP: Stable Pain Control: Satisfactory Nausea & Vomiting: Negative Mental Status: Baseline Respiratory Status: Airway Patent Hydration Status: Satisfactory Anesthesia Complications: None
== END 2023-04-25 17:20 | disposition home or self-care (01) ==
LOC: ED 15:52 → SDS 19:07 → MS3 19:08 → SDS 19:44
PROVIDERS: ATTEND Surgery
PROC: 0FT44ZZ Resection of Gallbladder, Percutaneous Endoscopic Approach (ICD-10-PCS; principal; 2023-04-24)
PROC: BF502Z0 Other Imaging of Bile Ducts using Fluorescing Agent, Intraoperative (ICD-10-PCS; 2023-04-24)
DX: K80.64 Calculus of gallbladder and bile duct with chronic cholecystitis without obstruction (principal); G47.30 Sleep apnea, unspecified; F17.290 Nicotine dependence, other tobacco product, uncomplicated
CPT/HCPCS: 36415; 47563; 74300; 76705; 80053; 83690; 85025; 99284; 99285; A9270; C1758; J0330; J7120; Q9966